=== PATIENT | female | born 1940 | race American Indian/Alaskan Native ===

== ENCOUNTER 2017-04-27 06:57 | Emergency (ER) | payer MEDICARE ==
[2017-04-27 07:55] LABS: Basophils % (Auto) 1.2 % (0.0-1.8); Eosinophils % (Auto) 1.3 % (0.0-4.3); Hematocrit 33.6 % (30.3-42.9); Hemoglobin 10.8 gm/dl (10.1-14.3); Mean Corpuscular HGB Conc 32 % (30-34); Mean Corpuscular Hemoglobin 27 pg (28-32); Mean Corpuscular Volume 85 fl (79-97); Platelet Count 205 K/mm3 (140-440); Red Blood Count 3.96 M/mm3 (3.65-5.03); Red Cell Distribution Width 14.7 % (13.2-15.2); White Blood Count 4.6 K/mm3 (4.5-11.0)
[2017-04-27 08:00] LABS: Chloride 104.3 mmol/L (98-107); Potassium 4.8 mmol/L (3.6-5.0)
[2017-04-27 08:56] LABS: Bilirubin,Urine NEG (Negative); Blood,Urine SM (Negative); Ketones,Urine NEG (Negative); Leukocyte Esterase,Urine SM (Negative); Mucus,Urine FEW /HPF; Nitrite,Urine NEG (Negative); RBC,Urine < 1.0 /HPF (0.0-6.0); Urobilinogen,Urine < 2.0 mg/dL (<2.0)
[2017-04-27] MEDS ORDERED: ZOFRAN ODT PO ONE (11:02)
[2017-04-27] MEDS ORDERED: CARAFATE PO ONE (11:02)
[2017-04-27] MEDS ORDERED: BENTYL IM ONE (11:02)
--- NOTE | 2017-04-27 11:03 | Emergency Department Report ---
ED General Adult HPI - General Chief complaint: Nausea/Vomiting/Diarrhea Stated complaint: VOMITING/NAUSEA/LT SIDE PAIN Time Seen by Provider: 04/27/17 10:52 Source: patient, family, RN notes reviewed, old records reviewed Mode of arrival: Ambulatory Limitations: Other (patient is a poor historian. The patient has dementia.) - History of Present Illness Initial comments: This is a 76-year-old female. She is previously unknown to me. Her primary care doctor is Dr. Calzada. Past medical history includes hypertension, hysterectomy, cholecystectomy, dementia. History obtained by speaking to the patient's daughter, Bettye Ivey; . As for the patient's daughter, the patient had 3 episodes today of emesis. The first was around 6:00 AM, and was clear. The patient was also pointed to her left hand side. The other 2 episodes were yellow. The patient is now back to her baseline as per her daughter. The patient is requesting to eat. No headache, neck pain, chest pain, shortness of breath, lethargy or irritability. The symptoms did not have any exacerbating or relieving factors. The patient' s daughter thinks that the patient appears back to her normal baseline. -: Sudden, This morning Location: abdomen Improves with: none Worsens with: none Associated Symptoms: denies other symptoms, nausea/vomiting. denies: chest pain , cough, diaphoresis, fever/chills, headaches, loss of appetite, malaise, shortness of breath, syncope, weakness - Related Data Previous Rx's Medication Instructions Recorded Last Taken Type Dicyclomine [Bentyl] 10 mg PO QID PRN #20 capsule 04/27/17 Unknown Rx Ondansetron [Zofran Odt] 4 mg PO QID PRN #20 tab.rapdis 04/27/17 Unknown Rx Allergies Allergy/AdvReac Type Severity Reaction Status Date / Time ciprofloxacin [From Cipro] AdvReac Hives Verified 04/27/17 07:29 ciprofloxacin HCl AdvReac Hives Verified 04/27/17 07:29 [From Cipro] ED Review of Systems ROS: Stated complaint: VOMITING/NAUSEA/LT SIDE PAIN Other details as noted in HPI Constitutional: denies: fever, malaise Eyes: denies: eye discharge ENT: denies: epistaxis, congestion Respiratory: denies: cough Cardiovascular: denies: chest pain Gastrointestinal: abdominal pain, nausea, vomiting Genitourinary: as per HPI Musculoskeletal: back pain Skin: as per HPI Neurological: confusion (chronic). denies: headache, weakness ED Past Medical Hx - Past Medical History Previous Medical History?: Yes Hx Hypertension: Yes Hx Renal Disease: Yes Hx Dementia: Yes - Surgical History Additional Surgical History: hysterectomy, gallstone, shoulder and knee replacement - Social History Smoking Status: Never Smoker Substance Use Type: None - Medications Home Medications: Home Medications Medication Instructions Recorded Confirmed Last Taken Type Dicyclomine [Bentyl] 10 mg PO QID PRN #20 capsule 04/27/17 Unknown Rx Ondansetron [Zofran Odt] 4 mg PO QID PRN #20 tab.rapdis 04/27/17 Unknown Rx ED Physical Exam - General Limitations: Other (patient is demented. Patient is a poor historian. Daughter reports the patient appears to be at baseline) General appearance: alert, in no apparent distress - Head Head exam: Present: atraumatic, normocephalic - Eye Eye exam: Present: normal appearance, EOMI - ENT ENT exam: Present: normal exam, normal orophraynx, mucous membranes moist, normal external ear exam - Neck Neck exam: Present: normal inspection, full ROM. Absent: tenderness, meningismus - Respiratory Respiratory exam: Present: normal lung sounds bilaterally. Absent: respiratory distress - Cardiovascular Cardiovascular Exam: Present: normal rhythm, bradycardia, normal heart sounds. Absent: systolic murmur, diastolic murmur, rubs, gallop - GI/Abdominal GI/Abdominal exam: Present: soft, normal bowel sounds. Absent: distended, tenderness, guarding, rebound, rigid, pulsatile mass - Extremities Exam Extremities exam: Present: normal inspection, full ROM, normal capillary refill. Absent: pedal edema, joint swelling, calf tenderness - Back Exam Back exam: Present: normal inspection, full ROM. Absent: tenderness, CVA tenderness (R), CVA tenderness (L), muscle spasm, paraspinal tenderness, vertebral tenderness - Neurological Exam Neurological exam: Present: alert (patient alerts to name, location, identifies family by name), other (Extraocular movements intact. Tongue midline. No facial droop. Facial sensation intact to light touch in the V1, V2, V3 distribution bilaterally. 5 and 5 strength in 4 extremities.. Sensation is intact to light touch in 4 extremities.). Absent: motor sensory deficit - Psychiatric Psychiatric exam: Present: normal affect, normal mood - Skin Skin exam: Present: warm, dry, intact, normal color. Absent: rash ED Course Vital Signs 04/27/17 04/27/17 07:26 11:41 Temperature 97.6 F 97.9 F Pulse Rate 57 L 62 Respiratory 18 16 Rate Blood Pressure 205/100 Blood Pressure 114/72 [Right] O2 Sat by Pulse 98 99 Oximetry - Reevaluation(s) Reevaluation #1: 04/27/17 11:39 differential diagnosis: Pneumonia, colitis, diverticulitis, urinary tract infection, constipation Assessment and plan: A 76-year-old female with reported history of left-sided pain and resolving nausea and vomiting. She is afebrile, with reassuring vital signs with the exception of hypertension which appears to be asymptomatic. As per report from family and review of old records, patient does have a history of renal insufficiency which does not appear to be new, worsening or different. X-ray of the chest is negative. Urinalysis does not corroborate urinary tract infection. Laboratory studies unremarkable. Patient tolerating liquid feeds. Elevated blood pressure is appreciated, there is no pulsatile abdominal mass, doubt AAA/dissection. Pulses equal in 4 extremities. Blood pressure is improved at this time, noncontrast CT scan of the abdomen and pelvis pending. 04/27/17 11:44 Reevaluation #2: 04/27/17 13:18 CT scan negative for acute surgical disease/pathology. Nonspecific incidental findings noted left-sided adrenal glands, and renal anatomy. Patient is able to tolerate liquid feeds. She is in no distress at this time. The patient's daughter is provided copy of CT scan report and laboratory studies, instructed to follow up with outpatient primary care. ED Medical Decision Making - Lab Data Result diagrams: 04/27/17 07:34 04/27/17 07:34 Vital Signs 04/27/17 04/27/17 07:26 11:41 Temperature 97.6 F 97.9 F Pulse Rate 57 L 62 Respiratory 18 16 Rate Blood Pressure 205/100 Blood Pressure 114/72 [Right] O2 Sat by Pulse 98 99 Oximetry Labs 04/27/17 04/27/17 04/27/17 07:34 07:34 08:32 WBC 4.6 RBC 3.96 Hgb 10.8 Hct 33.6 MCV 85 MCH 27 L MCHC 32 RDW 14.7 Plt Count 205 Lymph % (Auto) 15.5 [place] % (Auto) 7.4 H Eos % (Auto) 1.3 Baso % (Auto) 1.2 Lymph # 0.7 L [place] # 0.3 Eos # 0.1 Baso # 0.1 Seg Neutrophils % 74.6 H Seg Neutrophils # 3.5 Sodium 139 Potassium 4.8 Chloride 104.3 Carbon Dioxide 23 Anion Gap 17 BUN 33 H Creatinine 1.5 H Estimated GFR 41 BUN/Creatinine Ratio 22.00 Glucose 92 Calcium 9.0 Urine Color Yellow Urine Turbidity Clear Urine pH 5.0 Ur Specific [place] 1.017 Urine Protein 30 mg/dl Urine Glucose (UA) Neg Urine Ketones Neg Urine Blood Sm Urine Nitrite Neg Urine Bilirubin Neg Urine Urobilinogen < 2.0 Ur Leukocyte Esterase Sm Urine WBC (Auto) 1.0 Urine RBC (Auto) < 1.0 Urine Mucus Few - EKG Data 04/27/17 11:45 sinus bradycardia, 49 beats per minute, left axis deviation, borderline left anterior fascicular block, left ventricular hypertrophy, not consistent with STEMI, abnormal EKG - Radiology Data Radiology results: report reviewed, image reviewed interpreted by me: X-ray of the chest is negative for acute disease Critical care attestation.: If time is entered above; I have spent that time in minutes in the direct care of this critically ill patient, excluding procedure time. ED Disposition Clinical Impression: Left flank pain Disposition: DC-01 TO HOME OR SELFCARE Is pt being admited?: No Does the pt Need Aspirin: No Condition: Stable Additional Instructions: Continue current outpatient medications. Follow-up with your primary care doctor within the next 7-10 days. Take the pain medication, nausea medication as directed. Please note that patient's blood pressure was elevated upon presentation to the emergency room. This should be followed up by her primary care doctor within the recommended timeframe. Noncontrast CT scan demonstrated no acute disease that would require emergent surgical intervention or hospital admission, but numerous incidental findings were noted, which should be followed up by a primary care doctor. It is very important to follow-up for these incidental findings, to exclude tumor/cancer/malignancy. Return to the ER right away with new pain, worsened pain, migration of pain, fevers, chills, confusion, intractable nausea or vomiting, inability to tolerate liquid feeds. Prescriptions: Dicyclomine [Bentyl] 10 mg PO QID PRN #20 capsule PRN Reason: Pain Ondansetron [Zofran Odt] 4 mg PO QID PRN #20 tab.rapdis PRN Reason: Nausea Referrals: JACINTA CALZADA DO [Primary Care Provider] - 3-5 Days
--- NOTE | 2017-04-27 11:22 | XRay Report ---
PORTABLE CHEST INDICATION: Left-sided pain, nausea, vomiting. Evaluate for pneumonia. COMPARISON: 05/07/2008 FINDINGS: Portable, frontal chest radiograph demonstrates borderline cardiomegaly, slight aortic knob calcifications and right shoulder replacement. Probable cholecystectomy clips. Bony demineralization and various degenerative changes. Clear lungs. CONCLUSION: No acute disease, as described. Thank you for the opportunity to participate in this patient's care.
[2017-04-27 11:42] VITALS: BP 114/72
--- NOTE | 2017-04-27 12:57 | Cat Scan Report ---
CT ABDOMEN AND PELVIS WITHOUT CONTRAST INDICATION: Left-sided abdominal pain, nausea, vomiting. COMPARISON: None similar. FINDINGS: Noncontrast abdomen and pelvis CT performed. LUNG BASES: Borderline cardiomegaly. Coronary calcifications. Nonspecific distal esophageal wall prominence/thickening, not excluded for gastroesophageal reflux and/or hiatal hernia, amongst others. ABDOMEN: Please note that sensitivity to detect small visceral lesions is limited due to the absence of intravenous or oral contrast. Cholecystectomy clips. Grossly unremarkable unenhanced liver, spleen, pancreas, right adrenal, nonaneurysmal abdominal aorta with few atherosclerotic calcifications and IVC. Left adrenal diffusely prominent, more so the medial limb/possibly adenomatous hyperplasia. No hydronephrosis or radiopaque calculi. Numerous bilateral renal lesions noted, many hyperdense/hemorrhagic cysts while an approximately 1.3 cm partly exophytic right upper renal mass on axial image 79, series 2 is isoechoic to the adjacent kidney and demonstrates a small intrinsic calcification. Couple similar left renal lesions may also be present both superiorly and inferiorly. No ascites or size significant adenopathy. Nonopacified GI tract evaluation limited, though grossly nonobstructive. Normal appendix. Few distal ileal diverticuli. Extensive diverticulosis also seen throughout the colon. Mild rectus diastasis with supraumbilical outward hernia-like bowing with transverse neck of 5.8 cm and subjacent nonobstructed small bowel as on axial image 187, amongst others. PELVIS: Extensive sigmoid diverticulosis without acute complication. Few pelvic phleboliths. Uterus surgically absent. Grossly unremarkable non-opacified urinary bladder and the rectum. No free fluid or significant adenopathy. Multilevel spinal degenerative changes, most advanced lumbar, including vacuum disc phenomenon throughout, approximately 5 mm anterolisthesis of L4 over L5, and upper to mid lumbar extensive osteophytosis. Lower lumbar facet arthropathy. Lumbar levoscoliosis apex at about L2. Demineralized bones. CONCLUSION: No definite acute CT abnormality, though various incidental findings noted, as detailed above, including extensive diverticulosis, advanced multilevel spinal degenerative changes and numerous bilateral renal lesions, some hyperdense cysts while others inadequately characterized on this limited, unenhanced exam. Thank you for the opportunity to participate in this patient's care.
== END 2017-04-27 13:54 | disposition home or self-care (01) ==
LOC: ED 06:57
DX: R10.9 Unspecified abdominal pain (principal); I10 Essential (primary) hypertension; Z90.710 Acquired absence of both cervix and uterus; Z88.1 Allergy status to other antibiotic agents
CPT/HCPCS: 36415; 71010; 74176; 80048; 81001; 82962; 85025; 96372; 99284; J0500; Q0162